=== PATIENT | female | born 1945 | race Caucasian/White ===

== ENCOUNTER 2019-07-08 08:52 | Observation (INO) ==
[~2019-07-08 08:52] MED LIST: Vancomycin 1,000 MG, Sodium Chloride IRRigation 1,000 ML IR ONE; ceFAZolin 1,000 MG, Sodium Chloride IRRigation 1,000 ML IR ONE
[2019-07-08] MEDS ORDERED: CeFAZolin Syr 2,000MG/20 ML 2,000 MG/20 ML SYRINGE IVPB ONE (09:11)
[2019-07-08] MEDS ORDERED: Ringers Solution, Lactated 1,000 ML IVC SCH (09:15)
[2019-07-08] MEDS ORDERED: Ondansetron 4 MG/2 ML VIAL IVP ONE (09:35)
[2019-07-08] MEDS ORDERED: Famotidine 20 MG/2 ML VIAL IVP ONE (09:35)
[2019-07-08] MEDS ORDERED: *HR* Labetalol 20 MG/4 ML SYRINGE IVP PRN ×2 (09:35→15:55)
[2019-07-08] MEDS ORDERED: Albuterol 2.5 MG/3 ML NEBULIZER IH PRN (09:35)
[2019-07-08] MEDS ORDERED: Acetaminophen IV 1,000 MG/100 ML INFUS..BTL IVPB ONE (09:35)
[2019-07-08] MEDS ORDERED: *HR* HYDROmorphone (PF) 1 MG/ML SYRINGE IVP PRN (09:35)
[2019-07-08] MEDS ORDERED: *HR* OxyCODONE Immed Rel 5 MG TABLET PO PRN ×2 (09:35→15:55)
[2019-07-08] MEDS ORDERED: *HR* Promethazine 25 MG/ML VIAL IVP PRN (09:35)
[2019-07-08] MEDS ORDERED: Albuterol 2.5 MG/3 ML NEBULIZER IH ONE (09:36)
[2019-07-08] MEDS ORDERED: Heparin 1,000 UNITS/500 mL 0 ML ONE (09:49)
[2019-07-08] MEDS ORDERED: Nitroglycerin 0 MG/0 ML INFUS..BTL IVC ONE (10:31)
[2019-07-08] MEDS ORDERED: *HR* FentaNYL (PF) 100 MCG/2 ML VIAL ONE ×2 (10:31→14:37)
[2019-07-08] MEDS ORDERED: *HR* Propofol 200 MG/20 ML VIAL IVP ONE (10:31)
[2019-07-08] MEDS ORDERED: Heparin 1,000 UNITS/500 mL 1,000 ML ONE (10:31)
[2019-07-08] MEDS ORDERED: Isovue-300 150 ML INFUS..BTL ONE (10:32)
[2019-07-08] MEDS ORDERED: Lidocaine -MPF 2% 2 ML VIAL ONE ×2 (10:33→14:39)
[2019-07-08] MEDS ORDERED: Lidocaine HCL 4 ML Topical Solution (Laryng-O-Jet Kit Sterile Pak) TP ONE (10:33)
[2019-07-08] MEDS ORDERED: *HR* Succinylcholine 200 MG/10 ML VIAL IVP ONE (10:33)
[2019-07-08] MEDS ORDERED: *HR* Rocuronium Bromide 50 MG/5 ML VIAL ONE (10:33)
[2019-07-08] MEDS ORDERED: Bupivacaine-MPF 0.25% 10 ML VIAL ONE (11:06)
[2019-07-08] MEDS ORDERED: *HR* Vasopressin 20 UNIT/ML VIAL ONE (11:57)
[2019-07-08] MEDS ORDERED: Ondansetron 4 MG/2 ML VIAL ONE (13:00)
[2019-07-08] MEDS ORDERED: Dexamethasone 4 MG/ML VIAL ONE (13:00)
[2019-07-08] MEDS ORDERED: *HR* Heparin 5,000 UNIT/ML VIAL ONE (13:22)
[2019-07-08] MEDS ORDERED: Heparin 1,000 UNITS/500 mL 500 ML ONE ×2 (13:48→13:49)
[2019-07-08] MEDS ORDERED: *HR* PHENYLEPHRINE 1,000 MCG/10 ML SYRINGE IVP ONE (14:41)
[2019-07-08] MEDS ORDERED: Acetaminophen 325 MG TABLET PO PRN (15:55)
[2019-07-08] MEDS ORDERED: ALPRAZolam 0.5 MG TABLET PO PRN (15:55)
[2019-07-08] MEDS ORDERED: Naloxone 0.4 MG/ML INJ IVP PRN (15:55)
[2019-07-08] MEDS ORDERED: *HR* HYDROcodone/Acet 5/325 mg TABLET PO PRN (15:55)
[2019-07-08] MEDS ORDERED: Ondansetron 4 MG/2 ML VIAL IVP PRN (15:55)
[2019-07-08] MEDS ORDERED: 0.9 % Sodium Chloride 500 ML ONE (16:38)
[2019-07-08] MEDS: *HR* Acetylcysteine 20% 600 MG/3 ML ORAL SYRINGE PO SCH (20:42)
[2019-07-09 05:52] LABS: Basophils % 0.1 %; Hematocrit 26.7 % (35.3-44.9); Immature Granulocytes % 0.6 % (0-4); Lymphocytes # 0.8 K/mcL (0.6-4.6); Lymphocytes % 8.6 %; Mean Corpuscular HGB Conc 35.2 g/dL (31.6-35.5); Mean Corpuscular Volume 93.7 fL (83.0-100.0); Mean Platelet Volume 10.1 fL (9.4-12.4); Monocytes # 0.3 K/mcL (0.0-1.3); Monocytes % 3.8 %; Neutrophils # 7.9 K/mcL (1.6-8.9); Platelet Count 132 K/mcL (140-400); Red Blood Count 2.85 M/mcL (3.82-4.97); Red Cell Distribution Width 14.3 % (11.5-14.5); Segmented Neutrophils % 86.9 %; White Blood Count 9.1 K/mcL (4.3-11.1)
[2019-07-09 05:53] LABS: Hemoglobin 9.4 g/dL (11.5-15.4)
[2019-07-09 06:13] LABS: Calcium 8.1 mg/dL (8.6-10.3); Potassium 4.7 mEq/L (3.5-5.1)
[2019-07-09 06:40] VITALS: BP 86/44
[2019-07-09] MEDS: *HR* Acetylcysteine 20% 600 MG/3 ML ORAL SYRINGE PO SCH (07:53)
[2019-07-09] MEDS ORDERED: Metoprolol XL (24 HR) Succ 50 MG TAB.ER.24H PO SCH (09:00)
[2019-07-09] MEDS ORDERED: Lisinopril-HCTZ 20-12.5mg TABLET PO SCH (09:00)
== END 2019-07-09 10:33 | disposition home or self-care (01) | DRG 39 ==
LOC: SAMDAY 08:52 → INTOOBSV 16:41 → 2NNU 16:41
PROVIDERS: ADMIT Surgery Vascular Surgery; ATTEND Surgery Vascular Surgery